=== PATIENT | male | born 1945 | race Two or more races ===

== ENCOUNTER 2017-07-12 16:47 | Emergency (ER) | payer MEDICARE ==
[2017-07-12 16:57] VITALS: BP 149/74
--- NOTE | 2017-07-12 17:00 | UC ---
Laceration HPI - HPI Summary HPI Summary: 72 year old male presents with complains of right eyebrow laceration, right arm abrasion and right anterior rivera puncture wound after falling off a 15 foot ladder. - History Of Current Complaint Chief Complaint: UCLaceration Stated Complaint: EYE LACERATION Time Seen by Provider: 07/12/17 16:59 Hx Obtained From: Patient Laceration Location: Generalized - right eyebrow, arm, and rivera - Allergies/Home Medications Allergies/Adverse Reactions: Allergies Allergy/AdvReac Type Severity Reaction Status Date / Time No Known Allergies Allergy Verified 07/12/17 16:57 PMH/Surg Hx/FS Hx/Imm Hx Previously Healthy: Yes - Surgical History Surgical History: Yes Surgery Procedure, Year, and Place: [address] [facility] [place] - Social History Alcohol Use: None Substance Use Type: None Smoking Status (MU): Never Smoked Tobacco Review of Systems Constitutional: Negative Skin: Other - right eyebrow, arm rivera laceration/abrasion Eyes: Negative ENT: Negative Respiratory: Negative Cardiovascular: Negative Gastrointestinal: Negative Genitourinary: Negative Motor: Negative Neurovascular: Negative Musculoskeletal: Negative Neurological: Negative Psychological: Negative All Other Systems Reviewed And Are Negative: Yes Physical Exam Triage Information Reviewed: Yes Vital Signs: Initial Vital Signs Temp 36.8 C 07/12/17 16:50 Pulse 72 07/12/17 16:50 Resp 20 07/12/17 16:50 BP 149/74 07/12/17 16:50 Pulse Ox 100 07/12/17 16:50 Vital Signs Reviewed: Yes Eye Exam: Normal ENT Exam: Normal Dental Exam: Normal Neck exam: Normal Neck: Positive: 1 Respiratory Exam: Normal Cardiovascular Exam: Normal Abdominal Exam: Normal Musculoskeletal Exam: Normal Neurological Exam: Normal Psychological Exam: Normal Skin: Positive: Other - right eyebrow, arm and rivera laceration/abrasion Laceration Repair - Laceration Repair 1 Description: Linear Laceration Size After Repair: Length (cm) - 2.5 to 5 cm Modified For Repair: No Type Injection: Local Anesthesia Used: 1.0% Lido Cleansing Completed Via Routine Prep: Yes Irrigation With Pressure Irrigation Device: Yes Closure Material: Sutures - 6.0 ethilon Closure Method: Single Layer Suture Of: Skin Suture Type: Nylon - 6.0 2 Description: Linear Laceration Size After Repair: Length (cm) - < 2.5 cm Type Injection: Local Anesthesia Used: 1.0% Lido Cleansing Completed Via Routine Prep: Yes Irrigation With Pressure Irrigation Device: Yes Closure Material: Sutures Closure Method: Single Layer Suture Type: Nylon - 4.0 3 Description: Linear Laceration Size After Repair: Length (cm) - > 7.5 cm Modified For Repair: No Closure Material: SteriStrips Closure Method: Single Layer Laceration Course/Dx - Differential Dx - Laceration/Wound Provider Diagnoses: laceration right eyebrow. abrasion right forearm. laceration right rivera Discharge - Discharge Plan Condition: Stable Disposition: HOME Prescriptions: Sulfamethox/Trimethoprim DS* [Bactrim DS 800/160 TAB*] 1 tab PO BID #14 tab Patient Education Materials: Laceration (ED) Referrals: Rodolfo Cheney MD [Primary Care Provider] -
[2017-07-12] MEDS ORDERED: Lidocaine 1% MPF* 2 ML VIAL INJ ONE (17:06)
[2017-07-12] MEDS ORDERED: Tetan/Diph/Pertus SYR(Tdap)* 0.5 ML SYR(BOOSTRIX) use SYR IM ONE (17:07)
[2017-07-12] MEDS ORDERED: Benzoin Compound STICK ONE (17:31)
== END 2017-07-12 18:14 | disposition home or self-care (01) ==
LOC: UCEAST 16:47
DX: S01.111A Laceration without foreign body of right eyelid and periocular area, initial encounter (principal); S81.811A Laceration without foreign body, right lower leg, initial encounter; S50.811A Abrasion of right forearm, initial encounter; W11.XXXA Fall on and from ladder, initial encounter; Y93.9 Activity, unspecified; Y92.9 Unspecified place or not applicable; Z23 Encounter for immunization
CPT/HCPCS: 12002; 90471; 90715; 99204; G0463

== ENCOUNTER 2017-07-14 14:50 | Emergency (ER) | payer MEDICARE ==
[2017-07-14 15:13] VITALS: BP 144/78
--- NOTE | 2017-07-14 15:29 | UC ---
Laceration HPI - HPI Summary HPI Summary: day 2 suture recheck on right eye brow right rivera and steristrips right forearm- ---patient states hand and forearm is stiff but getting better - History Of Current Complaint Chief Complaint: UCSkin Stated Complaint: STITCHES REMOVAL Time Seen by Provider: 07/14/17 15:12 Hx Obtained From: Patient Laceration Location: Calf Mechanism Of Injury: Blunt Trauma Onset/Duration: Sudden Onset, Lasting Days - 2, Other - getting better every day Severity: Mild Pain Intensity: 4 Pain Scale Used: 0-10 Numeric Aggravating Factors: Nothing - Allergies/Home Medications Allergies/Adverse Reactions: Allergies Allergy/AdvReac Type Severity Reaction Status Date / Time No Known Allergies Allergy Verified 07/14/17 15:13 PMH/Surg Hx/FS Hx/Imm Hx Previously Healthy: No Cardiovascular History: Hypertension - Surgical History Surgical History: Yes Surgery Procedure, Year, and Place: [address] [facility] [place] - Family History Known Family History: Positive: None - Social History Occupation: Retired Lives: Alone Alcohol Use: None Substance Use Type: None Smoking Status (MU): Never Smoked Tobacco Review of Systems Constitutional: Negative Skin: Negative, Other - well approximated intake sutures right eye brow, right rivera, right forearm steris intact Eyes: Negative ENT: Negative Respiratory: Negative Cardiovascular: Negative Gastrointestinal: Negative Genitourinary: Negative Motor: Negative Neurovascular: Negative Musculoskeletal: Negative Neurological: Negative Psychological: Negative Is Patient Immunocompromised?: No All Other Systems Reviewed And Are Negative: Yes Physical Exam Triage Information Reviewed: Yes Appearance: Well-Appearing, No Pain Distress, Well-Nourished Vital Signs: Initial Vital Signs Temp 98.5 F 07/14/17 15:08 Pulse 76 07/14/17 15:08 Resp 16 07/14/17 15:08 BP 144/78 07/14/17 15:08 Pulse Ox 99 07/14/17 15:08 Vital Signs Reviewed: Yes Eye Exam: Normal Eyes: Positive: Conjunctiva Clear ENT Exam: Normal ENT: Positive: Normal ENT inspection, Hearing grossly normal. Negative: Nasal congestion, Nasal drainage, Trismus, Muffled/hoarse voice Dental Exam: Normal Neck exam: Normal Neck: Positive: Supple, Nontender Respiratory Exam: Normal Respiratory: Positive: Chest non-tender, No respiratory distress, No accessory muscle use Cardiovascular Exam: Normal Cardiovascular: Positive: Pulses Normal, Brisk Capillary Refill Musculoskeletal Exam: Normal Musculoskeletal: Positive: Strength Intact, ROM Intact, No Edema Neurological Exam: Normal Neurological: Positive: Alert, Muscle Tone Normal Psychological Exam: Normal Skin Exam: Normal Skin: Positive: Other - intact and healing wounds Laceration Course/Dx - Course/Dx Course Of Treatment: follow with pcp on as planned for suture removal and blood prssure re-check - Differential Dx - Laceration/Wound Provider Diagnoses: healing facial, right rivera and right forearm laceration Discharge - Discharge Plan Condition: Stable Disposition: HOME Patient Education Materials: Care For Your Stitches (ED), Steristrips (ED) Referrals: Rodolfo Cheney MD [Primary Care Provider] - 07/18/17
== END 2017-07-14 15:36 | disposition home or self-care (01) ==
LOC: UCEAST 14:50
DX: S01.111D Laceration without foreign body of right eyelid and periocular area, subsequent encounter (principal); S81.811D Laceration without foreign body, right lower leg, subsequent encounter; S51.811D Laceration without foreign body of right forearm, subsequent encounter; W45.8XXD Other foreign body or object entering through skin, subsequent encounter; I10 Essential (primary) hypertension
CPT/HCPCS: 99211; G0463

== ENCOUNTER 2018-01-17 18:51 | Emergency (ER) | payer MEDICARE, BC ==
[2018-01-17 19:04] VITALS: BP 126/81
--- NOTE | 2018-01-17 20:01 | UC ---
Skin Complaint HPI - HPI Summary HPI Summary: 72 y/o male presents to the urgent care c/o tick bite on his Rt thigh yesterday at noon. Pt removed it and brought the tick. Pt noticed this moring there is red rash around tick bite, he applied Bacitracin oint to alleviate symptoms. He is concerned about a "red ring" around the bite area. Pt denies fever, JARRELL, joint pains, SOB, chest pain,, abdominal pain, N/V/D. - History of Current Complaint Chief Complaint: UCSkin Time Seen by Provider: 01/17/18 19:32 Stated Complaint: TICK BITE Hx Obtained From: Patient Onset/Duration: Sudden Onset, Lasting Days - 1 day, Still Present, Worse Since - this morning w/ a sorrounding rash Skin Exposure Onset/Duration: Days Ago - 1 day Timing: Constant Onset Severity: Mild Current Severity: Mild Pain Intensity: 0 Pain Scale Used: 0-10 Numeric Location: Discrete - RT thight Character: Redness Aggravating Factor(s): Nothing Alleviating Factor(s): Nothing Associated Signs & Symptoms: Positive: Rash. Negative: Fever, Chills, Drainage , Tenderness Related History: Possible Reaction to: Insect - Allergy/Home Medications Allergies/Adverse Reactions: Allergies Allergy/AdvReac Type Severity Reaction Status Date / Time No Known Allergies Allergy Verified 01/17/18 19:04 Review of Systems Constitutional: Negative Skin: Rash - RT tight s/p tick bite Eyes: Negative ENT: Negative Respiratory: Negative Cardiovascular: Negative Gastrointestinal: Negative Genitourinary: Negative Motor: Negative Neurovascular: Negative Musculoskeletal: Negative Neurological: Negative Psychological: Negative Is Patient Immunocompromised?: No All Other Systems Reviewed And Are Negative: Yes PMH/Surg Hx/FS Hx/Imm Hx Previously Healthy: Yes Cardiovascular History: Hypertension - Surgical History Surgical History: Yes Surgery Procedure, Year, and Place: [address] [facility] [place] - Family History Known Family History: Positive: Cardiac Disease Family History: Emphysema - Social History Occupation: Retired Lives: With Family Alcohol Use: None Substance Use Type: None Smoking Status (MU): Never Smoked Tobacco Physical Exam - Summary Physical Exam Summary: Vital Signs Reviewed: Yes General: well developed, well nourished male sitting in the examining table w/o any apparent distress. Eyes: Positive: Conjunctiva Clear - PERRLA, EOMI ENT: Positive: Normal ENT inspection, Hearing grossly normal, Pharynx normal, TMs normal Neck: Positive: Supple, Nontender, No Lymphadenopathy Respiratory: Positive: Chest nontender, Lungs clear, Normal breath sounds Cardiovascular: Positive: RRR, No Murmur, Pulses Normal Abdomen Description: Positive: Nontender, No Organomegaly, Soft. Negative: CVA Tenderness (R), CVA Tenderness (L) Bowel Sounds: Positive: Present Musculoskeletal: Positive: Strength Intact, ROM Intact, No Edema Neurological Exam: Normal Psychological Exam: Normal Skin: Positive: rashes - Proximal medial aspect of RT thigh with tick bite with surrounding erythema, non tender to palpation. tick no longer present, no swelling or drainage observed. Triage Information Reviewed: Yes Vital Signs: Initial Vital Signs Temp 98.6 F 01/17/18 19:02 Pulse 84 01/17/18 19:02 Resp 12 01/17/18 19:02 BP 126/81 01/17/18 19:02 Pulse Ox 99 01/17/18 19:02 Course/Dx - Course Course Of Treatment: 72 y/o male presents to the urgent care c/o tick bite on his Rt thigh yesterday at noon. Pt removed it and brought the tick. Pt noticed this moring there is red rash around tick bite, he applied Bacitracin oint to alleviate symptoms. He is concerned about a "red ring" around the bite area. Pt denies fever, JARRELL, joint pains, SOB, chest pain,, abdominal pain, N/V/D.Hx obtained. pt w/ Proximal medial aspect of RT thigh with tick bite with surrounding erythema, non tender to palpation. tick no longer present, no swelling or drainage observed on examination. Antibiotic prophylaxis with Doxycycline given to the patient to prevent lyme Disease.. Pt tolerated well medication. Pt advised to observe the area for the development or Erythema Migrans for upto 30 days following exposure. Continue applying Bacitracin oint. Advised if he develops fever or erythema Migrans to return to the clinic or PCP for further treatment .Pt understood and agreed with plan of care. - Differential Diagnoses - Skin Complaint Differential Diagnoses: Abscess, MRSA, Scabies, Tick Born Illness, Other - insect bite, bee sting - Diagnoses Provider Diagnoses: 1- Tick bite Discharge - Sign-Out/Discharge Documenting (check all that apply): Discharge/Admit/Transfer - D/c home - Discharge Plan Condition: Stable Disposition: HOME Patient Education Materials: Tick Bite (ED) Referrals: Rodolfo Cheney MD [Primary Care Provider] - 2 Weeks Lo RILEY,Ravinder Torres [Medical Doctor] - If Needed Additional Instructions: 1- Please observe the area for the development or Erythema Migrans for up to 30 days following exposure. Components of the tick saliva can cause transient erythema that should not be confused with Erythema Migrans. If you develop the bull's eye rash, fever, joint pains please return to the urgent care or f/u with your PCP for further management. continue applying Bacitracin oint 2/day x days over tick bite rash 2-Antibiotic prophylaxis with Doxycycline was given to you today to prevent lyme Disease. Lyme serology can be drawn in 2 weeks with your PCP to r/o Lyme disease since there is probability of negative results at early exposure. - Billing Disposition and Condition Condition: STABLE Disposition: HOME
[2018-01-17] MEDS ORDERED: DOXYcycline CAP(*) 100 MG PO ONE (20:02)
== END 2018-01-17 20:20 | disposition home or self-care (01) ==
LOC: UCEAST 18:51
DX: S70.361A Insect bite (nonvenomous), right thigh, initial encounter (principal); W57.XXXA Bitten or stung by nonvenomous insect and other nonvenomous arthropods, initial encounter; Y93.9 Activity, unspecified; Y92.9 Unspecified place or not applicable; I10 Essential (primary) hypertension
CPT/HCPCS: 99212; A9270-GY; G0463

== ENCOUNTER 2018-04-13 13:47 | Emergency (ER) | payer MEDICARE, BC ==
[2018-04-13 13:56] VITALS: BP 139/73
--- NOTE | 2018-04-13 13:59 | UC ---
Dizzy HPI HPI Summary: 72 yo male presents with RIGHT eye complaint. He tells me that on 04/10 he began to have blurriness in the inferior portion of his right eye visual field. Since that time has been intermittent, but this morning that visual area seems to be harrell/black in color and is increasing up to the midline of his right eye. He tells me that he has seen Dr. Casanova in the past for cataracts and bifocals. He has no pain. Denies headache, dizziness, weakness, slurred speech, or injury. - History Of Current Complaint Chief Complaint: UCEye Stated Complaint: eye complaint Time Seen by Provider: 04/13/18 13:58 Hx Obtained From: Patient Onset/Duration: Gradual Onset Severity Currently: None Pain Intensity: 0 - Allergies/Home Medications Allergies/Adverse Reactions: Allergies Allergy/AdvReac Type Severity Reaction Status Date / Time No Known Allergies Allergy Verified 04/13/18 13:56 PMH/Surg Hx/FS Hx/Imm Hx Cardiovascular History: Hypertension - Surgical History Surgical History: Yes Surgery Procedure, Year, and Place: [address] [facility] [place] - Family History Known Family History: Positive: None, Cardiac Disease Family History: Emphysema - Social History Occupation: Retired Lives: With Family Alcohol Use: Rare Substance Use Type: None Smoking Status (MU): Never Smoked Tobacco Review of Systems Constitutional: Negative Skin: Negative Eyes: Blurred Vision ENT: Negative Respiratory: Negative Cardiovascular: Negative Gastrointestinal: Negative Neurovascular: Negative Musculoskeletal: Negative Neurological: Negative Psychological: Negative All Other Systems Reviewed And Are Negative: Yes Physical Exam - Summary Physical Exam Summary: GENERAL: NAD. WDWN. No pain distress. SKIN: No rashes, sores, or open wounds. HEENT: Head: AT/NC Eyes: PERRLA. EOM intact. Conjunctiva clear without inflammation or discharge. Left eye: 20/20 WNL. Right eye: 20/50. Peripheral field absent inferiorly. Ears: Hearing grossly normal. TMs intact, no bulging, erythema, or edema. Throat: Posterior oropharynx without exudates, erythema, or tonsillar enlargement. Uvula midline. NECK: Supple. Nontender. No lymphadenopathy. CHEST: CTAB. No r/r/w. No accessory muscle use. Breathing comfortably and in no distress. CV: RRR. Without m/r/g. Pulses intact. Brisk cap refill. MSK: FROM in B/L UEs and LEs with symmetric strength. NEURO: A&Ox3. 3 word recall, remote, recent memory, ability to follow 2-step directions, and attention intact. CN II XII grossly intact. [id number] are intact. Gait with normal base. Romberg: maintains balance, no pronator drift. Sensory: sensations intact b/l UEs and LEs and symmetric. Normal speech. No facial drooping. PSYCH: Age appropriate behavior. Triage Information Reviewed: Yes Vital Signs: Initial Vital Signs Temp 98.6 F 04/13/18 13:52 Pulse 77 04/13/18 13:52 Resp 18 04/13/18 13:52 BP 139/73 04/13/18 13:52 Pulse Ox 100 04/13/18 13:52 Vital Signs Reviewed: Yes National Institutes Of Health - NIH Scale Level of Consciousness: Alert/Keenly Responsive Ask Patient the Month and His/Her Age: Both Correct Ask Pt to Open/Close Eyes and Site Medical Director/Release Non-Paretic Hand: Both Correctly Best Gaze (Only Horizontal Eye Movement): Normal Visual Field Testing: No Visual Loss Facial Paresis-Pt to Smile & Close Eyes or Grimace Symmetry: Normal/Symmetrical Motor Function - Right Arm: No Drift-Holds 10 Seconds Motor Function - Left Arm: No Drift-Holds 10 Seconds Motor Function - Right Leg: No Drift-Holds 10 Seconds Motor Function - Left Leg: No Drift-Holds 10 Seconds Limb Ataxia-Must be out of Proportion to Weakness Present: Absent Sensory (Use Pinprick to Test Arms/Legs/Trunk/Face): Normal Best Language (Describe Picture, Name Items): No Aphasia Dysarthria (Read Several Words): Normal Extinction and Inattention: No Abnormality Total Score: 0 Dizzy Course/Dx - Course Course Of Treatment: High suspicion for retinal detachment. [facility] [place] not have ophthalmology coconut jelly roller, therefore I called [facility] and they had Dr. Rao Noel coconut jelly roller for opthalmology. I was able to speak to Dr. Noel and he agreed that it sounds like a retinal detachment and he recommended that pt see Dr. Casanova tomorrow in the office or f/u with himself tomorrow if Dr. Casanova is unable to see pt. Information was provided to pt and he was agreeable to plan. Strongly advised that if he develops a headache, eye pain, or total loss of vision - to go to the ED. - Differential Dx/Diagnosis Provider Diagnoses: Right eye retinal detachment Discharge - Sign-Out/Discharge Documenting (check all that apply): Patient Departure - Discharge Plan Condition: Stable Disposition: HOME Referrals: Rodolfo Cheney MD [Primary Care Provider] - George Ludwig MD [Medical Doctor] - Herbert Casanova MD [Medical Doctor] - 1 Day Additional Instructions: If you develop a fever, shortness of breath, chest pain, new or worsening symptoms - please call your PCP or go to the ED. Your blood pressure was high at todays visit. Please see your primary provider within 4 weeks for recheck and re-evaluation. 1) Please call Dr. Casanova first thing tomorrow morning to get an appointment for TOMORROW 04/14/18 - if he cannot see you tomorrow, please call Dr. Ludwig at the other number provided and he will see you tomorrow. - Billing Disposition and Condition Condition: STABLE Disposition: Home
--- NOTE | 2018-04-14 10:20 | UC ---
- Progress Note Progress Note: I called Dr. Casanova' office this morning and verified that pt does have an appointment with him today. They are seeing him this afternoon. Discharge - Sign-Out/Discharge Documenting (check all that apply): Post-Discharge Follow Up - Discharge Plan Condition: Stable Disposition: HOME Referrals: Rodolfo Cheney MD [Primary Care Provider] - Herbert Casanova MD [Medical Doctor] - 1 Day George Ludwig MD [Medical Doctor] - Additional Instructions: If you develop a fever, shortness of breath, chest pain, new or worsening symptoms - please call your PCP or go to the ED. Your blood pressure was high at todays visit. Please see your primary provider within 4 weeks for recheck and re-evaluation. 1) Please call Dr. Casanova first thing tomorrow morning to get an appointment for TOMORROW 04/14/18 - if he cannot see you tomorrow, please call Dr. Ludwig at the other number provided and he will see you tomorrow. - Billing Disposition and Condition Condition: STABLE Disposition: Home Attestation Statement User Type: Provider - I was available for consult. This patient was seen by the JOSTIN. The patient was not presented to, seen by, or examined by me. -Jim
== END 2018-04-13 15:15 | disposition home or self-care (01) ==
LOC: UCEAST 13:47
DX: H33.21 Serous retinal detachment, right eye (principal); I10 Essential (primary) hypertension
CPT/HCPCS: 99211; G0463

== ENCOUNTER 2019-08-05 09:11 | Emergency (ER) | payer MEDICARE, BC ==
[2019-08-05] MEDS ORDERED: NS 0.9% 1000 ML** 1,000 ML IV ONE (09:43)
--- NOTE | 2019-08-05 09:47 | ED ---
GI/ HPI - HPI Summary HPI Summary: 74-year-old male presents with left lower quadrant pain for the past week. He states had the pain intermittent for past month but became consistent in past week. He states the pain has been pretty constant. He states is better when he is laying down. He denies any testicular pain. He admits to urinary frequency that is chronic. No nausea or vomiting. He denies any diarrhea constipation. Had a normal BM today that did not change the pain. He has never had these symptoms before. No history of diverticulitis or colitis. Has a history of hernia repair when was younger. Has history of high blood pressure. - History of Current Complaint Chief Complaint: EDAbdPain Time Seen by Provider: 08/05/19 09:31 Stated Complaint: LOWER ABDOMINAL PAIN PER PT Pain Intensity: 8 - Allergy/Home Medications Allergies/Adverse Reactions: Allergies Allergy/AdvReac Type Severity Reaction Status Date / Time doxycycline Allergy Severe Swelling Verified 08/05/19 09:27 Of Face,Lips,& Throat Home Medications: Home Medications Acetaminophen TAB* [Tylenol TAB*] 325 mg PO Q4H PRN 08/05/19 [History Confirmed 08/05/19] Chondroitin Sulfate A Sodium [Optiflex-C] 400 mg PO DAILY PRN 08/05/19 [History Confirmed 08/05/19] Famotidine TAB* [Pepcid 20 MG TAB*] 20 mg PO BID 08/05/19 [History Confirmed ] PMH/Surg Hx/FS Hx/Imm Hx Endocrine/Hematology History: Denies: Hx Diabetes, Hx Thyroid Disease Cardiovascular History: Reports: Hx Hypertension - OK ON DAILY MEDS Respiratory History: Denies: Hx Asthma, Hx Chronic Obstructive Pulmonary Disease (COPD) GI History: Reports: Hx Gastroesophageal Reflux Disease Denies: Hx Ulcer Musculoskeletal History: Reports: Hx Arthritis - HANDS ELBOWS SHOULDERS AND LOWER SPINE Sensory History: Reports: Hx Contacts or Glasses - GLASSES Opthamlomology History: Reports: Hx Contacts or Glasses - GLASSES - Surgical History Surgery Procedure, Year, and Place: [address] [facility] [place]. 1996 [facility] Hx Anesthesia Reactions: No Infectious Disease History: No Infectious Disease History: Denies: Hx Clostridium Difficile, Hx Hepatitis, Hx Human Immunodeficiency Virus (HIV), Hx of Known/Suspected MRSA, Hx Shingles, Hx Tuberculosis, Hx Known/ Suspected VRE, Hx Known/Suspected VRSA, History Other Infectious Disease, Traveled Outside the [place] in Last 30 Days - Family History Known Family History: Positive: None, Cardiac Disease Family History: Emphysema - Social History Alcohol Use: Rare Substance Use Type: Reports: None Smoking Status (MU): Never Smoked Tobacco Review of Systems Negative: Fever Negative: Chest Pain Negative: Shortness Of Breath Positive: Abdominal Pain. Negative: Vomiting, Diarrhea, Nausea All Other Systems Reviewed And Are Negative: Yes Physical Exam Triage Information Reviewed: Yes Vital Signs On Initial Exam: Initial Vitals Temp Pulse Resp BP Pulse Ox 98.7 F 78 16 167/80 100 08/05/19 09:24 08/05/19 09:24 08/05/19 09:24 08/05/19 09:24 08/05/19 09:24 Vital Signs Reviewed: Yes Appearance: Positive: Well-Appearing Skin: Positive: Warm, Dry Head/Face: Positive: Normal Head/Face Inspection Eyes: Positive: Normal, Conjunctiva Clear ENT: Positive: Pharynx normal Respiratory/Lung Sounds: Positive: Clear to Auscultation, Breath Sounds Present Cardiovascular: Positive: Normal, RRR Abdomen Description: Positive: Soft, Other: - tenderness in LLQ Bowel Sounds: Positive: Present Musculoskeletal: Positive: Normal Neurological: Positive: Normal Psychiatric: Positive: Normal Procedures - Sedation Patient Received Moderate/Deep Sedation with Procedure: No Diagnostics - Vital Signs Vital Signs Temp Pulse Resp BP Pulse Ox 08/05/19 09:24 98.7 F 78 16 167/80 100 - Laboratory Result Diagrams: 08/05/19 10:00 08/05/19 10:00 Lab Statement: Any lab studies that have been ordered have been reviewed, and results considered in the medical decision making process. - CT abd CT Interpretation Completed By: Radiologist Summary of CT Findings: IMPRESSION: 1. DIVERTICULOSIS. 2. ENLARGED PROSTATE. 3. FAT-CONTAINING LEFT INGUINAL HERNIA. 4. CHOLELITHIASIS. 5. 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 GIGU Course/Dx - Course Course Of Treatment: 74-year-old male presents with left lower quadrant pain for the past week. He states is better when he is laying down. He denies any testicular pain. He admits to urinary frequency that is chronic. No nausea, vomiting, diarrhea, or constipation. On exam tenderness in left lower quadrant. wbc normal. crp normal. urine shows hematuria but on discussion with patient he states this is chronic. CT shows left inguinal hernia. will have follow up with surgery. will have follow up with urology about hematuria. patient understand and agrees with plan. - Diagnoses Differential Diagnoses - Male: Diverticulitis, Pyelonephritis, Ureteral Calculi Provider Diagnoses: Left inguinal hernia, Hematuria Discharge ED - Sign-Out/Discharge Documenting (check all that apply): Patient Departure - Discharge Plan Condition: Good Disposition: HOME Patient Education Materials: Inguinal Hernia (ED) Referrals: Rodolfo Cheney MD [Primary Care Provider] - Froy Strong MD [Medical Doctor] - Pop Lopes MD [Medical Doctor] - Additional Instructions: follow up with surgery about hernia avoid lifting heavy objects Take tyenlol as needed for pain every 6 hours follow up with urology about blood in urine Return to ED if develop any new or worsening symptoms - Billing Disposition and Condition Condition: GOOD Disposition: Home - Attestation Statements Provider Attestation: I was available for consultation for this patient. I did not evaluate the patient or participate in any medical decision making or disposition decisions unless I am specifically named in the chart as having consulted on the patient. If I have consulted on the patient, please see my own ED note on the patient encounter. Robbie Sorenson MD
[2019-08-05 10:14] LABS: ABS Eosinophils 0.2 10^3/ul (0-0.6); ABS Lymphocytes 2.1 10^3/ul (1.0-4.8); ABS Monocytes 0.5 10^3/ul (0-0.8); ABS Neutrophils 1.8 10^3/ul (1.5-7.7); Hematocrit 39 % (42-52); Hemoglobin 13.2 g/dL (14.0-18.0); Lymphocyte % 45.1 %; Mean Corpuscular HGB Conc 34 g/dL (31-36); Mean Corpuscular Hemoglobin 29 pg (27-31); Mean Corpuscular Volume 84 fL (80-94); Nucleated Red Blood Cells % 0.1; Platelet Count 170 10^3/uL (150-450); Red Blood Count 4.64 10^6 /uL (4.18-5.48); Red Cell Distribution Width 16 % (10-15); White Blood Count 4.7 10^3/uL (3.5-10.8)
[2019-08-05 10:29] LABS: Urine Appearance Clear; Urine Bilirubin Negative (Negative); Urine Blood 2+ (Negative); Urine Color Yellow; Urine Glucose Negative (Negative); Urine Ketones Negative (Negative); Urine Nitrite Negative (Negative); Urine Protein Negative (Negative); Urine Specific Gravity 1.013 (1.010-1.030); Urine Urobilinogen Negative (Negative)
[2019-08-05 10:34] LABS: Urine Bacteria Absent (Absent); Urine Red Blood Cell 2+(6-10/hpf) (Absent); Urine White Blood Cell Absent (Absent)
[2019-08-05 10:36] LABS: ALT 11 U/L (7-52); AST 13 U/L (13-39); Albumin 4.1 g/dL (3.2-5.2); Albumin/Globulin Ratio 1.4 (1-3); Alkaline Phosphatase 44 U/L (34-104); Anion Gap 4 mmol/L (2-11); BUN/Creatinine Ratio 18.6 (8-20); Blood Urea Nitrogen 22 mg/dL (6-24); C Reactive Protein < 1.00 mg/L (<8.01); CO2 Carbon Dioxide 25 mmol/L (22-32); Chloride 108 mmol/L (101-111); EGFR African American 73.2 (>60); EGFR Non-African American 60.5 (>60); Globulin 2.9 g/dL (2-4); Glucose 92 mg/dL (70-100); Potassium 4.4 mmol/L (3.5-5.0); Sodium 137 mmol/L (135-145)
[2019-08-05] MEDS ORDERED: Iohexol 300* (CONTRAST) 10 ML SDV IV ONE (11:54)
[2019-08-05 13:11] VITALS: BP 154/87
== END 2019-08-05 13:00 | disposition home or self-care (01) ==
LOC: ED 09:11
DX: K40.90 Unilateral inguinal hernia, without obstruction or gangrene, not specified as recurrent (principal); R31.9 Hematuria, unspecified; I10 Essential (primary) hypertension; K21.9 Gastro-esophageal reflux disease without esophagitis; Z79.899 Other long term (current) drug therapy; Z88.1 Allergy status to other antibiotic agents; K57.90 Diverticulosis of intestine, part unspecified, without perforation or abscess without bleeding; N40.0 Benign prostatic hyperplasia without lower urinary tract symptoms; K80.20 Calculus of gallbladder without cholecystitis without obstruction; I72.8 Aneurysm of other specified arteries
CPT/HCPCS: 36415; 74177; 80053; 81003; 81015; 83690; 85025; 86140; 96360; 99282; Q9967

== ENCOUNTER 2019-09-02 10:36 | Inpatient (IN) | payer MEDICARE, BC ==
[~2019-09-02 10:36] MED LIST: Buffered Lidocaine 1% SYRIN* 1 ML/SYRINGE INTRADERM ONE; Famotidine IV* 10 MG/ML 2 ML (20 mg) IV ONE; Lactated Ringers 1000 ML Bag* 1,000 ML IV SCH
[2019-09-02] MEDS ORDERED: Clindamycin 900 MG/D5W BAG(*) 900 MG/50 ML BAG IVPB ONE (11:50)
[2019-09-02] MEDS ORDERED: Famotidine IV* 10 MG/ML 2 ML (20 mg) ONE (11:50)
[2019-09-02] MEDS ORDERED: Propofol* 10 MG/ML 20 ML BTL ONE (12:21)
[2019-09-02] MEDS ORDERED: Dexamethasone IV* 4 MG/ML 1 ML (4 MG) ONE (12:21)
[2019-09-02] MEDS ORDERED: Lidocaine 2% PF * 5 ML VIAL ONE (12:21)
[2019-09-02] MEDS ORDERED: Ondansetron INJ* 2 MG/ML VIAL ONE ×2 (12:21→16:48)
[2019-09-02] MEDS ORDERED: Midazolam* 1 MG/ML 5 ML VIAL (5 MG) ONE (12:21)
[2019-09-02] MEDS ORDERED: Rocuronium* 10 MG/ML VIAL ONE (12:21)
[2019-09-02] MEDS ORDERED: fentaNYL* 50 MCG/ML 2 ML VIAL (100 MCG VIAL) ONE ×3 (12:21→18:16)
[2019-09-02] MEDS ORDERED: Ketorolac INJ* 30 MG/ML 1 ML VIAL ONE (12:21)
[2019-09-02] MEDS ORDERED: Sugammadex * 200 MG/2 ML VIAL IV PUSH ONE (13:16)
[2019-09-02] MEDS ORDERED: Bupivacaine 0.25% EPI 200,000* 30 ML SDV ONE (14:09)
[2019-09-02] MEDS ORDERED: EPHEDrine (Pressors)* 50 MG/ML VIAL ONE (14:40)
[2019-09-02] MEDS ORDERED: Ondansetron INJ* 2 MG/ML VIAL IV PRN ×2 (15:10→21:34)
[2019-09-02] MEDS ORDERED: oxyCODONE/Acetamin 5/325 MG* TAB PO PRN ×2 (15:10→21:16)
[2019-09-02] MEDS ORDERED: Naloxone* 0.4 MG/ML 1 ML VIAL IV PRN (15:10)
[2019-09-02] MEDS ORDERED: Sugammadex * 500 MG/5 ML VIAL IV PUSH ONE (15:36)
--- NOTE | 2019-09-02 15:52 | BRIEFOPN ---
Brief Operative/Procedure Note - Operation Details Pre-Op Diagnosis: Left inguinal hernia Post-Op Diagnosis: same Procedures: laparoscopic repair Left inguinal hernia with mesh Surgeon(s)/Proceduralists: Tae. Assist: EVY Medel Anesthesia: GET. IVF: 1400 ml RL Estimated Blood Loss: none Findings: as above Specimen(s)/Culture(s) Description: none Complications: none
[2019-09-02] MEDS: fentaNYL* 50 MCG/ML 2 ML VIAL (100 MCG VIAL) IV PRN ×4 (17:30→18:23)
[2019-09-02] MEDS ORDERED: Metoclopramide IV* 5 MG/ML 2 ML VIAL ONE (18:55)
[2019-09-02] MEDS ORDERED: NS 0.9% IV SCH (21:15)
--- NOTE | 2019-09-03 01:01 | OP ---
CC: [facility]; Primary care doctor * DATE OF OPERATION: 09/02/19 - ROOM #340 DATE OF : 47 SURGEON: Dr. Strong. PROGRAM SCHEDULER: EVY Martin ANESTHESIOLOGIST: Dr. Triana. ANESTHESIA: General. PRE-OP DIAGNOSIS: Left inguinal hernia. POST-OP DIAGNOSIS: Left inguinal hernia. PROCEDURE: Laparoscopic left inguinal hernia repair with mesh. BLOOD LOSS: Minimal. FLUIDS: 1400 cc of crystalloid fluid given. SPECIMEN: None. DESCRIPTION OF PROCEDURE: The patient was identified in the preoperative area. He was marked appropriately and taken to the operating room and placed on the operating table in the supine position. Preoperative antibiotics were given. Sequential devices were placed on bilateral lower extremities. General anesthesia was induced. The patient's abdomen was prepped and draped in a standard surgical fashion after the hair was clipped and a time-out was performed. An infraumbilical incision was made. This was deepened down to the anterior fascia on the left, which was incised and the rectus pillar retracted laterally. Blunt finger dissection was carried out and then next, a balloon dissector was inserted. We then inflated the balloon and watched as it inflated with the camera. We then removed the balloon dissector and placed a blunted port and insufflated the preperitoneal plane to a pressure of 12 mmHg. The patient tolerated the insufflation well. Two additional trocars were then placed in the lower midline. These were 5 mm trocars. We then proceeded to expose both Greg's on the left and right. The epigastric vessels on the left were isolated and maintained anteriorly. Blunt dissection laterally was carried out space of Bogros. We then next identified the peritoneum extending towards the hernia sac. This indirect hernia sac was then dissected off of the spermatic structures and placed posteriorly. We did open up the last bit of this sac and used an Endoloop to close it with 2-0 Vicryl. Next, lipoma of the cord, which was very large was reduced and placed in the midline close to our blunt umbilical port. This allowed us to place a large Bard 3DMax mesh into the space and unfurled it and tacked to Greg's ligament with 2 tacks and then laterally as well as at the rectus muscle. It closed the full myopectineal orifice and we allowed the area to collapse. Trocars removed under direct vision and the wounds were closed in a standard fashion followed by sterile dressing. [id number]/[facility] #: [id number] SABINE
[2019-09-03 07:39] VITALS: BP 121/58
--- NOTE | 2019-09-22 11:32 | DS ---
CC: [facility]; Primary Care Doctor * DISCHARGE SUMMARY: DATE OF ADMISSION: 09/02/19 DATE OF DISCHARGE: 09/03/19 HOSPITAL COURSE: Mr. Blum is a 74-year-old gentleman who was worked up as an outpatient and presented to the hospital on same day of surgery on 09/02/19 for a laparoscopic left inguinal hernia repair. Please see operative report for details. In the PACU, the patient suffered with severe nausea and was felt to not be safe for discharge home and for this reason was admitted in the overnight period. Medications were given for antiemetics. He was given IV fluids and was started on a diet with ice on the surgical site. By postoperative day 1, the patient was doing very well, had no complaints of nausea, no dysuria, no urinary incontinence and was discharged home with the previous packet that was given to him at the time of our planned discharge prior. The patient was discharged home in stable condition. He was to restart all his home medications. [id number]/[facility] #: [id number]
== END 2019-09-03 10:03 | disposition home or self-care (01) | DRG 352 ==
LOC: OR 10:36 → SSU 21:04
PROVIDERS: ADMIT Surgery; ATTEND Surgery
PROC: 0YU64JZ Supplement Left Inguinal Region with Synthetic Substitute, Percutaneous Endoscopic Approach (ICD-10-PCS; principal; 2019-09-02 12:30)
DX: K40.90 Unilateral inguinal hernia, without obstruction or gangrene, not specified as recurrent (principal); I10 Essential (primary) hypertension; K21.9 Gastro-esophageal reflux disease without esophagitis; M19.90 Unspecified osteoarthritis, unspecified site; F32.9 Major depressive disorder, single episode, unspecified; R35.0 Frequency of micturition; J30.2 Other seasonal allergic rhinitis; I83.90 Asymptomatic varicose veins of unspecified lower extremity; Z88.1 Allergy status to other antibiotic agents
CPT/HCPCS: A9270-GY; C1781; J1100; J1885; J2250; J2405; J2704; J2765; J3010

== ENCOUNTER 2019-09-05 06:42 | Emergency (ER) | payer MEDICARE, BC ==
--- OUTSIDE RECORDS SUMMARY | 2019-09-05 07:02 | XMS REPORT | Continuity of Care Document ---
:1945 External Reference #:[id number] Author Name Froy Strong MD, FACS (transmitted by agent of provider Stephania Blanco) Address [address] [place] [address] [place] [address] Care Team Providers Name Role Phone Rodolfo Cheney MD - Family Medicine Care Team Information Radiation Officer [facility] - Care Team Information Radiation Officer Emergency Care Problems Description No Information Available Social History Type Date Description Comments Sex Unknown Tobacco Use Start: Unknown Patient has never smoked Smoking Status Reviewed: 08/06/19 Patient has never smoked Exercise Type/Frequency Exercises regularly Allergies, Adverse Reactions, Alerts Active Allergies Reaction Severity Comments Date Doxycycline swelling 08/06/2019 Medications Active Medications SIG Qnty Indications Ordering Provider Date Hydrocodone-Acetamino 1 tablet PO 14tabs K40.90 Froy Strong, 08/06/2019 phen q4hrs prn pain , FACS 5-325mg Tablets Famotidine 1 by mouth twice Unknown 20mg Tablets a day Lisinopril Take One Tablet Unknown 5mg Tablets By Mouth Every Day Immunizations Description No Information Available Vital Signs Date Vital Result Comment 08/06/2019 10:19am Height 66 inches 5'6" Weight 170.00 lb Heart Rate 78 /min BP Systolic Sitting 142 mmHg BP Diastolic Sitting 84 mmHg Respiratory Rate 16 /min Body Temperature 98.6 F BMI (Body Mass Index) 27.4 kg/m2 Results Description No Information Available Procedures Description No Information Available Medical Devices Description No Information Available Encounters Description No Information Available Assessments Date Code Description Provider 08/06/2019 K40.90 Unilateral inguinal hernia, without Froy Strong MD, FACS obstruction or gangrene, not specified as recurrent Plan of Treatment 08/06/2019 - Froy Strong MD, FACSK40.90 Unilateral inguinal hernia, without obstruction or gangrene, not specified as recurrentNew Medication:Hydrocodone- Acetaminophen 5-325 mg - 1 tablet PO q4hrs prn painFollow up:Operating room Functional Status Description No Information Available Mental Status Description No Information Available Referrals Description No Information Available
[2019-09-05] MEDS ORDERED: NS 0.9% 1000 ML** 1,000 ML IV ONE ×2 (07:16→07:53)
[2019-09-05] MEDS ORDERED: Ondansetron INJ* 2 MG/ML VIAL IV ONE (07:17)
[2019-09-05 07:52] LABS: ABS Eosinophils 0.1 10^3/ul (0-0.6); ABS Lymphocytes 1.9 10^3/ul (1.0-4.8); ABS Monocytes 0.5 10^3/ul (0-0.8); ABS Neutrophils 3.7 10^3/ul (1.5-7.7); Eosinophil % 0.9 %; Hematocrit 37 % (42-52); Lymphocyte % 31.1 %; Mean Corpuscular HGB Conc 35 g/dL (31-36); Mean Corpuscular Hemoglobin 29 pg (27-31); Mean Corpuscular Volume 82 fL (80-94); Mean Platelet Volume 7.8 fL (7.4-10.4); Platelet Count 180 10^3/uL (150-450); Red Blood Count 4.54 10^6 /uL (4.18-5.48); Red Cell Distribution Width 15 % (10-15); White Blood Count 6.2 10^3/uL (3.5-10.8)
[2019-09-05 08:05] LABS: Albumin 4.2 g/dL (3.2-5.2); Albumin/Globulin Ratio 1.4 (1-3); BUN/Creatinine Ratio 13.5 (8-20); C Reactive Protein 7.5 mg/L (<8.01); EGFR African American 67.9 (>60); EGFR Non-African American 56.1 (>60); Globulin 3.1 g/dL (2-4); Magnesium 2.1 mg/dL (1.9-2.7); Potassium 4.1 mmol/L (3.5-5.0); Total Bilirubin 0.8 mg/dL (0.2-1.0); Total Protein 7.3 g/dL (6.4-8.9)
[2019-09-05 08:07] LABS: Troponin I 0.01 ng/mL (<0.03)
[2019-09-05 08:10] LABS: Urine Appearance Clear; Urine Color Straw; Urine Specific Gravity 1.006 (1.010-1.030); Urine Urobilinogen Negative (Negative)
[2019-09-05 08:11] LABS: Urine Bilirubin Negative (Negative); Urine Blood 2+ (Negative); Urine Glucose Negative (Negative); Urine Ketones Negative (Negative); Urine Nitrite Negative (Negative); Urine Protein Negative (Negative)
[2019-09-05 08:14] LABS: Urine Bacteria Absent (Absent); Urine Red Blood Cell 2+(6-10/hpf) (Absent); Urine Squamous Epithelial Cell Present (Absent); Urine White Blood Cell Trace(0-5/hpf) (Absent)
--- NOTE | 2019-09-05 09:21 | ED ---
Complex/Multi-Sys Presentation - HPI Summary HPI Summary: Pt. is a 74 y.o male who presents to the ER with complaints of increase urination, increased BM, and nausea x 1 day. Pt. had a left inguinal hernia repaired by Dr. Strong 3 days ago. Pt. states he was doing well and back to a normal diet until today. Pt. states his abdominal pain is much better but he has been nauseous. Pt. states he was taking lortab with milk of mag. He then took imodium. Pt. also notes chills. He denies fever, cp, sob, dysuria, vomiting. Sxs are moderate in severity. No current modifying factors. - History Of Current Complaint Chief Complaint: EDGeneral Time Seen by Provider: 09/05/19 07:01 Hx Obtained From: Patient - Allergies/Home Medications Allergies/Adverse Reactions: Allergies Allergy/AdvReac Type Severity Reaction Status Date / Time doxycycline Allergy Severe Swelling Verified 09/05/19 07:26 Of Face,Lips,& Throat PMH/Surg Hx/FS Hx/Imm Hx Previously Healthy: Yes Endocrine/Hematology History: Denies: Hx Diabetes, Hx Thyroid Disease Cardiovascular History: Reports: Hx Hypertension - OK ON DAILY MEDS Respiratory History: Denies: Hx Asthma, Hx Chronic Obstructive Pulmonary Disease (COPD) GI History: Reports: Hx Gastroesophageal Reflux Disease Denies: Hx Ulcer History: Reports: Hx Kidney Stones - 5 years ago- passed Denies: Hx Renal Disease Musculoskeletal History: Reports: Hx Arthritis - HANDS ELBOWS SHOULDERS AND LOWER SPINE Sensory History: Reports: Hx Contacts or Glasses - GLASSES Denies: Hx Hearing Aid Opthamlomology History: Reports: Hx Contacts or Glasses - GLASSES - Cancer History Hx Chemotherapy: No - Surgical History Surgery Procedure, Year, and Place: [address] [facility] 1996 [facility]. bilat cataract surgery with IOL. tonsillectomy age 7. retinal surgery Hx Anesthesia Reactions: No - Immunization History Date of Influenza Vaccine: 2019 Immunizations Up to Date: Yes Infectious Disease History: No Infectious Disease History: Denies: Hx Clostridium Difficile, Hx Hepatitis, Hx Human Immunodeficiency Virus (HIV), Hx of Known/Suspected MRSA, Hx Shingles, Hx Tuberculosis, Hx Known/ Suspected VRE, Hx Known/Suspected VRSA, History Other Infectious Disease, Traveled Outside the [place] in Last 30 Days - Family History Known Family History: Positive: None, Cardiac Disease Family History: Emphysema - Social History Alcohol Use: Rare Substance Use Type: Reports: None Smoking Status (MU): Never Smoked Tobacco Review of Systems Constitutional: Negative Negative: Fever ENT: Negative Cardiovascular: Negative Negative: Palpitations, Chest Pain Respiratory: Negative Negative: Shortness Of Breath, Cough Positive: Nausea, Other - increased formed BM.. Negative: Abdominal Pain, Vomiting Positive: frequency. Negative: dysuria, flank pain Musculoskeletal: Negative Skin: Negative Neurological: Negative All Other Systems Reviewed And Are Negative: Yes Physical Exam Triage Information Reviewed: Yes Vital Signs On Initial Exam: Initial Vitals Temp Pulse Resp BP Pulse Ox 98.1 F 90 16 168/92 100 09/05/19 06:55 09/05/19 06:55 09/05/19 06:55 09/05/19 06:55 09/05/19 06:55 Vital Signs Reviewed: Yes Appearance: Positive: Well-Appearing - Pt. sitting up in bed in NAD. Daughter present. Skin: Positive: Warm, Dry Head/Face: Positive: Normal Head/Face Inspection Eyes: Positive: Normal, EOMI, PATRICIO Neck: Positive: Supple Respiratory/Lung Sounds: Positive: Clear to Auscultation, Breath Sounds Present. Negative: Rales, Rhonchi, Wheezes Cardiovascular: Positive: Normal, RRR Abdomen Description: Positive: Other: - Abd. is soft with tenderness to LLQ. No rebound. Surgical incisions without erythema or drainage.. Negative: CVA Tenderness (R), CVA Tenderness (L) Musculoskeletal: Positive: Normal, Strength/ROM Intact Neurological: Positive: Normal, CN Intact II-III Psychiatric: Positive: Affect/Mood Appropriate Procedures - Sedation Patient Received Moderate/Deep Sedation with Procedure: No Diagnostics - Vital Signs Vital Signs Temp Pulse Resp BP Pulse Ox 09/05/19 07:18 97.5 F 09/05/19 07:12 77 100 09/05/19 07:10 80 164/94 100 09/05/19 06:55 98.1 F 90 16 168/92 100 - Laboratory Lab Results: Lab Results 09/05/19 09/05/19 09/05/19 Range/Units 07:35 07:35 07:35 WBC 6.2 (3.5-10.8) 10^3/uL RBC 4.54 (4.18-5.48) 10^6 /uL Hgb 13.0 L (14.0-18.0) g/dL Hct 37 L (42-52) % MCV 82 (80-94) fL MCH 29 (27-31) pg MCHC 35 (31-36) g/dL RDW 15 (10-15) % Plt Count 180 (150-450) 10^3/uL MPV 7.8 (7.4-10.4) fL Neut % (Auto) 59.1 % Lymph % (Auto) 31.1 % Daggett % (Auto) 8.7 % Eos % (Auto) 0.9 % Baso % (Auto) 0.2 % Absolute Neuts (auto) 3.7 (1.5-7.7) 10^3/ul Absolute Lymphs (auto) 1.9 (1.0-4.8) 10^3/ul Absolute Monos (auto) 0.5 (0-0.8) 10^3/ul Absolute Eos (auto) 0.1 (0-0.6) 10^3/ul Absolute Basos (auto) 0.0 (0-0.2) 10^3/ul Absolute Nucleated RBC 0.0 10^3/ul Nucleated RBC % 0.0 Sodium 137 (135-145) mmol/L Potassium 4.1 (3.5-5.0) mmol/L Chloride 104 (101-111) mmol/L Carbon Dioxide 27 (22-32) mmol/L Anion Gap 6 (2-11) mmol/L BUN 17 (6-24) mg/dL Creatinine 1.26 H (0.67-1.17) mg/dL Est GFR ( Amer) 67.9 (>60) Est GFR (Non-Af Amer) 56.1 (>60) BUN/Creatinine Ratio 13.5 (8-20) Glucose 104 H (70-100) mg/dL Lactic Acid 1.2 (0.5-2.0) mmol/L Calcium 10.0 (8.6-10.3) mg/dL Magnesium 2.1 (1.9-2.7) mg/dL Total Bilirubin 0.80 (0.2-1.0) mg/dL AST 20 (13-39) U/L ALT 14 (7-52) U/L Alkaline Phosphatase 47 (34-104) U/L Troponin I 0.01 (<0.03) ng/mL C-Reactive Protein 7.50 (<8.01) mg/L Total Protein 7.3 (6.4-8.9) g/dL Albumin 4.2 (3.2-5.2) g/dL Globulin 3.1 (2-4) g/dL Albumin/Globulin Ratio 1.4 (1-3) Urine Color Urine Appearance Urine pH (5-9) Ur Specific [place] (1.010-1.030) Urine Protein (Negative) Urine Ketones (Negative) Urine Blood (Negative) Urine Nitrate (Negative) Urine Bilirubin (Negative) Urine Urobilinogen (Negative) Ur Leukocyte Esterase (Negative) Urine WBC (Auto) (Absent) Urine RBC (Auto) (Absent) Ur Squamous Epith Cells (Absent) Urine Bacteria (Absent) Urine Glucose (Negative) 09/05/19 Range/Units 07:45 WBC (3.5-10.8) 10^3/uL RBC (4.18-5.48) 10^6 /uL Hgb (14.0-18.0) g/dL Hct (42-52) % MCV (80-94) fL MCH (27-31) pg MCHC (31-36) g/dL RDW (10-15) % Plt Count (150-450) 10^3/uL MPV (7.4-10.4) fL Neut % (Auto) % Lymph % (Auto) % Daggett % (Auto) % Eos % (Auto) % Baso % (Auto) % Absolute Neuts (auto) (1.5-7.7) 10^3/ul Absolute Lymphs (auto) (1.0-4.8) 10^3/ul Absolute Monos (auto) (0-0.8) 10^3/ul Absolute Eos (auto) (0-0.6) 10^3/ul Absolute Basos (auto) (0-0.2) 10^3/ul Absolute Nucleated RBC 10^3/ul Nucleated RBC % Sodium (135-145) mmol/L Potassium (3.5-5.0) mmol/L Chloride (101-111) mmol/L Carbon Dioxide (22-32) mmol/L Anion Gap (2-11) mmol/L BUN (6-24) mg/dL Creatinine (0.67-1.17) mg/dL Est GFR ( Amer) (>60) Est GFR (Non-Af Amer) (>60) BUN/Creatinine Ratio (8-20) Glucose (70-100) mg/dL Lactic Acid (0.5-2.0) mmol/L Calcium (8.6-10.3) mg/dL Magnesium (1.9-2.7) mg/dL Total Bilirubin (0.2-1.0) mg/dL AST (13-39) U/L ALT (7-52) U/L Alkaline Phosphatase (34-104) U/L Troponin I (<0.03) ng/mL C-Reactive Protein (<8.01) mg/L Total Protein (6.4-8.9) g/dL Albumin (3.2-5.2) g/dL Globulin (2-4) g/dL Albumin/Globulin Ratio (1-3) Urine Color Straw Urine Appearance Clear Urine pH 8.0 (5-9) Ur Specific [place] 1.006 L (1.010-1.030) Urine Protein Negative (Negative) Urine Ketones Negative (Negative) Urine Blood 2+ A (Negative) Urine Nitrate Negative (Negative) Urine Bilirubin Negative (Negative) Urine Urobilinogen Negative (Negative) Ur Leukocyte Esterase Negative (Negative) Urine WBC (Auto) Trace(0-5/hpf) (Absent) Urine RBC (Auto) 2+(6-10/hpf) A (Absent) Ur Squamous Epith Cells Present A (Absent) Urine Bacteria Absent (Absent) Urine Glucose Negative (Negative) Result Diagrams: 09/05/19 07:35 09/05/19 07:35 Lab Statement: Any lab studies that have been ordered have been reviewed, and results considered in the medical decision making process. Complex Multi-Symp Course/Dx Course Of Treatment: Pt. presenting with c/o nausea, frequent stooling, and urination. He is afebrile and well appearing. Not on antibx. Pt. notes stool is formed and looks like "kitten poop." Pt. started on IV fluids and zofran. ECG done at 0818 shows a sinus rhythm of 66bpm, left axis deviation, no stemi. Labs are unremarkable. U/A shows small blood without signs of infection> CXR and abd. xrays negative for acute findings. Pt. ambulatory in hallway by self without difficulty. Pt. tolerating POs but states he still feels nauseous and cannot eat. Pt. given a dose of compazine with good improvement. Will dc home with daughter. He has an apt. with her sx on Saturday. Will return to ER if sxs change or worsen. - Diagnoses Provider Diagnoses: Nausea Discharge ED - Sign-Out/Discharge Documenting (check all that apply): Patient Departure - Discharge Plan Condition: Improved Disposition: HOME Prescriptions: Prochlorperazine TAB* [Compazine Tab*] 10 mg PO Q6H PRN #12 tab PRN Reason: Nausea Patient Education Materials: Acute Nausea and Vomiting (ED), Laparoscopic Hiatal Hernia Repair (DC) Referrals: Rodolfo Cheney MD [Primary Care Provider] - Froy Strong MD [Medical Doctor] - Additional Instructions: Follow up with Dr. Strong next week as scheduled Increase fluids Return to ER for fever, abdominal pain, vomiting, or if concerned - Billing Disposition and Condition Condition: IMPROVED Disposition: Home - Attestation Statements Provider Attestation: I was available for consult. This patient was seen by the JOSTIN. The patient was not presented to, seen by, or examined by me. Alfie Green MD
[2019-09-05] MEDS ORDERED: PROCHLORPERAZINE INJ 5 MG/ML 2 ML VIAL IV ONE (09:34)
[2019-09-05 10:29] VITALS: BP 164/85
== END 2019-09-05 10:29 | disposition home or self-care (01) ==
LOC: ED 06:42
DX: R11.0 Nausea (principal); R10.9 Unspecified abdominal pain; I10 Essential (primary) hypertension; K21.9 Gastro-esophageal reflux disease without esophagitis; Z87.442 Personal history of urinary calculi
CPT/HCPCS: 36415; 71045; 74018; 80053; 81003; 81015; 83605; 83735; 84484; 85025; 86140; 87086; 93005; 96361; 96374; 96375; 99282; J0780; J2405